=== PATIENT | male | born 1970 | race African-American/Black ===

== ENCOUNTER 2019-12-30 01:44 | Emergency (ER) | payer SELFPAY ==
[~2019-12-30] VITALS: Ht 185.4 cm; Wt 86.4 kg
[2019-12-30 02:04] VITALS: BP 145/91
== END 2019-12-30 04:00 | disposition left against medical advice (07) ==
LOC: EMS 01:44
DX: S81.801A Unspecified open wound, right lower leg, initial encounter (principal); X58.XXXA Exposure to other specified factors, initial encounter; Y93.89 Activity, other specified; Y92.89 Other specified places as the place of occurrence of the external cause; Y99.8 Other external cause status; Z53.21 Procedure and treatment not carried out due to patient leaving prior to being seen by health care provider